=== PATIENT | male | born 1955 | race Caucasian/White ===

== ENCOUNTER 2022-10-05 00:43 | Observation (INO) | payer BC ==
[2022-10-05] MEDS ORDERED: EPINEPHrine 1 MG/1 ML Amp IM ONE (00:48)
[2022-10-05] MEDS ORDERED: diphenhydrAMINE 50 MG/ML SDV IVPUSH ONE (00:49)
[2022-10-05] MEDS: methylPREDNISolone Sodium Succinate 125 MG/2 ML SDV IVPUSH SCH ×2 (00:56→10:00)
[2022-10-05] MEDS ORDERED: Lidocaine 4% Top Soln 50 ML Bottle MUCMEM ONE (01:18)
[2022-10-05] MEDS ORDERED: Albuterol/Ipratropium 3.0-0.5 MG/3 ML Neb Soln NEB PRN (08:45)
[2022-10-05] MEDS ORDERED: Sodium Chloride 0.9% 2.5 ML Syringe FLUSH PRN (08:45)
[2022-10-05] MEDS ORDERED: Sodium Chloride 0.9% 10 ML Syringe FLUSH PRN (08:45)
[2022-10-05] MEDS ORDERED: Ondansetron 4 MG/2 ML SDV IVPUSH PRN (08:45)
[2022-10-05] MEDS ORDERED: Docusate Sodium 100 MG Cap PO PRN (08:45)
[2022-10-05] MEDS ORDERED: Albuterol 8 GM Inhaler INH PRN (08:59)
[2022-10-05] MEDS ORDERED: Acetaminophen 325 MG Tab PO PRN (09:00)
[2022-10-05] MEDS ORDERED: 50% Dextrose in Water 50 ML Syringe IVPUSH PRN (09:00)
[2022-10-05] MEDS ORDERED: Glucagon,Human Recombinant 1 MG Vial IM PRN (09:00)
[2022-10-05] MEDS ORDERED: metFORMIN 500 MG Tab.ER PO SCH (09:00)
[2022-10-05] MEDS ORDERED: Hydrochlorothiazide 25 MG Tab PO SCH (09:00)
[2022-10-05 09:13] LABS: BASOPHILS PERCENT AUTO 0.1 % (0.0-1.5); HEMATOCRIT 45.9 % (38.0-50.0); HEMOGLOBIN 15.6 g/dL (13.0-17.0); LYMPHOCYTES ABSOLUTE AUTO 0.8 K/uL (0.6-2.4); MEAN CORPUSCULAR HEMOGLOBIN 32.5 pg (27.0-32.0); MEAN CORPUSCULAR VOLUME 95.6 fL (80.0-98.0); MONOCYTES ABSOLUTE AUTO 0.1 K/uL (0.0-0.8); MONOCYTES PERCENT AUTO 0.9 % (0.0-15.0); NRBC ABSOLUTE 0 K/uL; PLATELET COUNT,PLT 219 K/uL (150-400)
[2022-10-05 09:41] LABS: CALCIUM 8.7 mg/dL (8.5-10.1); CREATININE 0.8 mg/dL (0.8-1.3); EST CRCL DRUG DOSING (CG) 81.97 mL/min; MAGNESIUM 2.1 mg/dL (1.8-2.4); POTASSIUM,K 4.7 mmol/L (3.5-5.1)
[2022-10-05] MEDS ORDERED: Budesonide/Formoterol Fumarate [Symbicort 160-4.5 Mcg Inh INH SCH (09:45)
[2022-10-05] MEDS ORDERED: Pantoprazole 40 MG Tab.CR PO SCH (09:45)
[2022-10-05] MEDS ORDERED: Insulin Aspart 100 Units/ML 3 ML Pen SUBCUT SCH (11:30)
[2022-10-05] MEDS ORDERED: atorvaSTATin 20 MG Tab PO SCH (21:00)
== END 2022-10-05 16:25 | disposition home or self-care (01) ==
LOC: MW.ED 00:43 → MW.MS 06:14
PROVIDERS: ADMIT Family Medicine; ATTEND Family Medicine
DX: K14.8 Other diseases of tongue (principal); T78.3XXA Angioneurotic edema, initial encounter; I10 Essential (primary) hypertension; J44.9 Chronic obstructive pulmonary disease, unspecified; K21.9 Gastro-esophageal reflux disease without esophagitis; E78.00 Pure hypercholesterolemia, unspecified; F17.210 Nicotine dependence, cigarettes, uncomplicated; Z88.8 Allergy status to other drugs, medicaments and biological substances; Z88.1 Allergy status to other antibiotic agents; Z88.0 Allergy status to penicillin; Z79.84 Long term (current) use of oral hypoglycemic drugs; Z79.899 Other long term (current) drug therapy
CPT/HCPCS: 36415; 80048; 82947; 83735; 85025; 96372; 96374; 96375; 96376; 99285; A9270; G0378; J0171; J1200; J1815; J2930; 99235; 99291

== ENCOUNTER 2024-01-31 06:42 | Day surgery (SDC) | payer BC ==
[2024-01-31] MEDS: Lactated Ringers 1,000 ML IV SCH (07:15)
[2024-01-31] MEDS ORDERED: propofoL 500 MG/50 ML 50 ML ONE (07:21)
[2024-01-31] MEDS ORDERED: Lactated Ringers 1,000 ML IV SCH (08:30)
== END 2024-01-31 09:25 | disposition home or self-care (01) ==
LOC: MW.SDS 06:42
PROVIDERS: ATTEND Surgery
DX: Z12.11 Encounter for screening for malignant neoplasm of colon (principal); K63.5 Polyp of colon; J44.9 Chronic obstructive pulmonary disease, unspecified; I10 Essential (primary) hypertension; E11.9 Type 2 diabetes mellitus without complications; E78.5 Hyperlipidemia, unspecified; F17.210 Nicotine dependence, cigarettes, uncomplicated; Z79.899 Other long term (current) drug therapy
CPT/HCPCS: 45380; J2704; J7120; 00811

== ENCOUNTER 2024-08-13 10:36 | Emergency (ER) | payer BC ==
[2024-08-13] MEDS: Sodium Chloride 0.9% 1,000 ML IV ONE (11:07)
[2024-08-13] MEDS: Ondansetron 4 MG/2 ML SDV IVPUSH ONE (11:08)
[2024-08-13 11:15] LABS: HEMATOCRIT 43.7 % (42.0-52.0); MEAN CORPUSCULAR HEMOGLOBIN 33.8 pg (28.0-32.0); MEAN CORPUSCULAR HGB CONC 36.6 g/dL (32.0-36.0); MEAN CORPUSCULAR VOLUME 92.2 fL (83.0-99.0); MEAN PLATELET VOLUME 9.9 fL (9.4-12.4); PLATELET COUNT,PLT 190 K/uL (150-400); RED BLOOD CELL COUNT 4.74 M/uL (4.52-5.90); WHITE BLOOD CELL COUNT,WBC 9.75 K/uL (3.9-11.3)
[2024-08-13 11:30] LABS: BAND ABSOLUTE MAN 0.59; BAND PERCENT MAN 6 %; BASOPHILS PERCENT MAN 2 % (0-1); LYMPHOCYTES ABSOLUTE MAN 1.46 K/uL (1.00-4.80); LYMPHOCYTES PERCENT MAN 15 % (24-44); MONOCYTES ABSOLUTE MAN 1.76 K/uL (0.00-0.80); MONOCYTES PERCENT MAN 18 % (0-8); SEG NEUTROPHILS ABSOLUTE MAN 5.75 K/uL (1.80-7.70); SEG NEUTROPHILS PERCENT MAN 59 % (41-71)
[2024-08-13 11:36] LABS: A/G RATIO 1.1 (0.9-1.6); ALANINE AMINOTRANSFERASE,ALT 26 IU/L (14-63); ALBUMIN 3.7 g/dL (3.4-5.0); ALKALINE PHOSPHATASE 88 U/L (46-116); ASPARTATE AMNIOTRANSFERASE,AST 29 IU/L (15-37); BILIRUBIN TOTAL 1.1 mg/dL (0.2-1.0); BLOOD UREA NITROGEN,BUN 22 mg/dL (7.0-18.0); CARBON DIOXIDE,CO2 36.8 mmol/L (21.0-32.0); CHLORIDE,CL 93 mmol/L (98-107); ETHANOL BLOOD MEDICAL <3 mg/dL; GLUCOSE RANDOM 105 mg/dL (74-106); LIPASE 30 U/L (16-77); POTASSIUM,K 3.3 mmol/L (3.5-5.1); SODIUM,NA 137 mmol/L (136-148)
[2024-08-13 11:37] LABS: ESTIMATED GFR 82 mL/min (>60)
[2024-08-13] MEDS: LORazepam 2 MG/ML SDV IVPUSH ONE (11:52)
[2024-08-13 12:11] LABS: APPEARANCE,URINE SLT CLOUDY; COLOR,URINE YELLOW; GLUCOSE,URINE 100 mg/dL (NEGATIVE); KETONES,URINE 15 mg/dL (NEGATIVE); LEUKOCYTE ESTERASE,URINE NEGATIVE (NEGATIVE); NITRITE,URINE NEGATIVE (NEGATIVE); OCCULT BLOOD,URINE NEGATIVE (NEGATIVE); PH,URINE 5.5 (5.0-8.0); PROTEIN,URINE 100 mg/dL (NEGATIVE)
[2024-08-13 12:14] LABS: BILIRUBIN,URINE MODERATE (NEGATIVE)
[2024-08-13 12:18] LABS: BACTERIA,URINE FEW (NEGATIVE); EPITHELIAL CELLS,URINE FEW (NONE-FEW); RBC,URINE 0-2 (0-2/HPF); WBC,URINE 0-4 (0-5/HPF)
[2024-08-13 12:19] LABS: MUCUS,URINE MODERATE (NONE-MOD)
== END 2024-08-13 13:20 | disposition home or self-care (01) ==
LOC: MW.ED 10:36
DX: K29.70 Gastritis, unspecified, without bleeding (principal); E86.0 Dehydration; J44.9 Chronic obstructive pulmonary disease, unspecified; I10 Essential (primary) hypertension; E11.9 Type 2 diabetes mellitus without complications; E78.00 Pure hypercholesterolemia, unspecified; Z86.16 Personal history of COVID-19; Z79.899 Other long term (current) drug therapy; Z79.84 Long term (current) use of oral hypoglycemic drugs; Z88.0 Allergy status to penicillin; Z88.8 Allergy status to other drugs, medicaments and biological substances; Z75.3 Unavailability and inaccessibility of health-care facilities
CPT/HCPCS: 36415; 70450; 80053; 80307; 81001; 83690; 84443; 85025; 96361; 96374; 96375; 99284; J2060; J2405; J7030

== ENCOUNTER 2024-12-05 19:04 | Emergency (ER) | payer BC ==
[2024-12-05 20:26] LABS: BASOPHILS ABSOLUTE AUTO 0.04 K/uL (0.00-0.20); BASOPHILS PERCENT AUTO 0.7 % (0.0-1.0); EOSINOPHILS ABSOLUTE AUTO 0.09 K/uL (0.00-0.45); EOSINOPHILS PERCENT AUTO 1.5 % (0.0-6.0); IMMATURE GRAN ABSOLUTE AUTO 0.02 K/uL (0.00-0.05); IMMATURE GRAN PERCENT AUTO 0.3 % (0.0-0.4); LYMPHOCYTES ABSOLUTE AUTO 2.53 K/uL (1.00-4.80); LYMPHOCYTES PERCENT AUTO 43.2 % (24.0-44.0); MEAN PLATELET VOLUME 9.8 fL (9.4-12.4); MONOCYTES ABSOLUTE AUTO 0.74 K/uL (0.00-0.80); MONOCYTES PERCENT AUTO 12.6 % (0.0-8.0); NEUTROPHILS ABSOLUTE AUTO 2.43 K/uL (1.80-7.70); NEUTROPHILS PERCENT AUTO 41.7 % (41.0-71.0); NRBC ABSOLUTE 0.00 K/uL (0.00-0.02); NRBC PERCENT 0.0 /100WBC (0.0-0.2); PLATELET COUNT,PLT 200 K/uL (150-400); RED BLOOD CELL COUNT 4.72 M/uL (4.52-5.90); WHITE BLOOD CELL COUNT,WBC 5.85 K/uL (3.9-11.3)
[2024-12-05 20:51] LABS: A/G RATIO 1.1 (0.9-1.6); ALANINE AMINOTRANSFERASE,ALT 36.0 IU/L (14-63); ASPARTATE AMNIOTRANSFERASE,AST 38.0 IU/L (15-37); BILIRUBIN TOTAL 0.2 mg/dL (0.2-1.0); BLOOD UREA NITROGEN,BUN 13.0 mg/dL (7.0-18.0); CARBON DIOXIDE,CO2 32.4 mmol/L (21.0-32.0); CHLORIDE,CL 100.0 mmol/L (98-107); CREATININE 0.7 mg/dL (0.8-1.3); EST CRCL DRUG DOSING (CG) 79.29 mL/min; GLUCOSE RANDOM 91.0 mg/dL (74-106); POTASSIUM,K 4.0 mmol/L (3.5-5.1); PROTEIN TOTAL,TP 7.2 g/dL (6.4-8.2); SODIUM,NA 142.0 mmol/L (136-148)
[2024-12-05 20:54] LABS: ESTIMATED GFR 100.0 mL/min (>60); ETHANOL BLOOD MEDICAL 359.0 mg/dL
[2024-12-05] MEDS: Magnesium Sulfate 2 GM/50 mL 2 GM in Premix Bag 1 BAG IV ONE (22:13)
== END 2024-12-06 01:45 | disposition home or self-care (01) ==
LOC: MW.ED 19:04
DX: F10.129 Alcohol abuse with intoxication, unspecified (principal); J41.0 Simple chronic bronchitis; I10 Essential (primary) hypertension; E78.00 Pure hypercholesterolemia, unspecified; K21.9 Gastro-esophageal reflux disease without esophagitis; Z88.0 Allergy status to penicillin; Z88.1 Allergy status to other antibiotic agents; Z88.8 Allergy status to other drugs, medicaments and biological substances; Z79.51 Long term (current) use of inhaled steroids; Z79.84 Long term (current) use of oral hypoglycemic drugs; Z79.899 Other long term (current) drug therapy; Y90.8 Blood alcohol level of 240 mg/100 ml or more
CPT/HCPCS: 36415; 70450; 71045; 80053; 80307; 82947; 83735; 85025; 96365; 96366; 99285; J3475; J7620; 99283; A9270-GY

== ENCOUNTER 2024-12-10 15:22 | Emergency (ER) | payer BC ==
[2024-12-10 15:57] LABS: BASOPHILS ABSOLUTE AUTO 0.03 K/uL (0.00-0.20); BASOPHILS PERCENT AUTO 0.2 % (0.0-1.0); EOSINOPHILS ABSOLUTE AUTO 0.02 K/uL (0.00-0.45); EOSINOPHILS PERCENT AUTO 0.2 % (0.0-6.0); IMMATURE GRAN ABSOLUTE AUTO 0.05 K/uL (0.00-0.05); IMMATURE GRAN PERCENT AUTO 0.4 % (0.0-0.4); LYMPHOCYTES ABSOLUTE AUTO 2.26 K/uL (1.00-4.80); LYMPHOCYTES PERCENT AUTO 18.6 % (24.0-44.0); MEAN PLATELET VOLUME 10.4 fL (9.4-12.4); MONOCYTES ABSOLUTE AUTO 1.15 K/uL (0.00-0.80); MONOCYTES PERCENT AUTO 9.5 % (0.0-8.0); NEUTROPHILS ABSOLUTE AUTO 8.63 K/uL (1.80-7.70); NEUTROPHILS PERCENT AUTO 71.1 % (41.0-71.0); NRBC ABSOLUTE 0.00 K/uL (0.00-0.02); NRBC PERCENT 0.0 /100WBC (0.0-0.2); PLATELET COUNT,PLT 162 K/uL (150-400); RED BLOOD CELL COUNT 4.20 M/uL (4.52-5.90); WHITE BLOOD CELL COUNT,WBC 12.14 K/uL (3.9-11.3)
[2024-12-10 16:14] LABS: A/G RATIO 1.0 (0.9-1.6); ALANINE AMINOTRANSFERASE,ALT 31.0 IU/L (14-63); ASPARTATE AMNIOTRANSFERASE,AST 25.0 IU/L (15-37); BILIRUBIN TOTAL 0.4 mg/dL (0.2-1.0); BLOOD UREA NITROGEN,BUN 21.0 mg/dL (7.0-18.0); CARBON DIOXIDE,CO2 26.7 mmol/L (21.0-32.0); CHLORIDE,CL 97.0 mmol/L (98-107); CREATININE 0.8 mg/dL (0.8-1.3); EST CRCL DRUG DOSING (CG) 70.0 mL/min; GLUCOSE RANDOM 123.0 mg/dL (74-106); POTASSIUM,K 2.8 mmol/L (3.5-5.1); PROTEIN TOTAL,TP 7.1 g/dL (6.4-8.2); SODIUM,NA 135.0 mmol/L (136-148)
[2024-12-10 16:18] LABS: ESTIMATED GFR 96.0 mL/min (>60)
[2024-12-10] MEDS: Potassium Chloride 20 MEQ Tab.ER PO ONE (16:38)
== END 2024-12-10 16:44 | disposition home or self-care (01) ==
LOC: MW.ED 15:22
DX: L03.113 Cellulitis of right upper limb (principal); E87.6 Hypokalemia; I10 Essential (primary) hypertension; E78.00 Pure hypercholesterolemia, unspecified; J44.9 Chronic obstructive pulmonary disease, unspecified; K21.9 Gastro-esophageal reflux disease without esophagitis; F17.200 Nicotine dependence, unspecified, uncomplicated; Z88.0 Allergy status to penicillin; Z88.8 Allergy status to other drugs, medicaments and biological substances; Z79.51 Long term (current) use of inhaled steroids; Z79.84 Long term (current) use of oral hypoglycemic drugs; Z79.899 Other long term (current) drug therapy
CPT/HCPCS: 36415; 80053; 85025; 85652; 86140; 99283; A9270